=== PATIENT | female | born 1945 | race Caucasian/White ===

== ENCOUNTER 2018-09-30 12:26 | Emergency (ER) | payer MEDICARE, OTHER ==
[~2018-09-30] VITALS: Ht 152.4 cm; Wt 62.1 kg
--- OUTSIDE RECORDS SUMMARY | 2018-09-30 12:28 | XMS REPORT ---
Author Author [facility] Address Unknown Phone Unavailable Care Team Providers Care Building Surveyor Name Role Phone Unavailable Unavailable Payers Payer Name Policy Type Policy Number Effective Date Expiration Date Problems This patient has no known problems. Allergies, Adverse Reactions, Alerts Allergy Name Allergy Type Status Severity Reaction(s) Onset Date Inactive Date Treating Clinician Comments Iodinated Contrast Media - IV Dye DA Active SV 2017-11-04 00:00:00 Sulfa (Sulfonamide Antibiotics) DA Active SV 2017-11-04 00:00:00 codeine DA Active SV 2017-11-04 00:00:00 erythromycin base DA Active SV 2017-11-04 00:00:00 azithromycin DA Active U 2017-11-04 00:00:00 Medications This patient has no known medications.
[2018-09-30 14:19] LABS: BASOPHILS % 0.2 % (0.0-1.0); EOSINOPHILS % 0.1 % (0.0-6.0); HEMATOCRIT 38.9 % (34.2-44.1); HEMOGLOBIN 12.5 g/dL (12.0-16.0); LYMPHOCYTES # (AUTO) 1.7 (1.0-3.2); LYMPHOCYTES % 20.1 % (18.0-39.1); MEAN CORPUSCULAR HEMOGLOBIN 30.4 pg (28-32); MEAN CORPUSCULAR HGB CONC 32.1 g/dL (31-35); MEAN CORPUSCULAR VOLUME 94.6 fL (81-99); MONOCYTES # (AUTO) 0.8 (0.2-0.8); MONOCYTES % 9.9 % (4.4-11.3); NEUTROPHILS # (AUTO) 5.8 (2.1-6.9); NEUTROPHILS % 69.3 % (38.7-80.0); PLATELET COUNT 150 x10e3/uL (140-360); RED BLOOD COUNT 4.11 x10e6/uL (3.6-5.1); RED CELL DISTRIBUTION WIDTH 14.2 % (11.7-14.4)
[2018-09-30 14:28] LABS: INR 0.85; PARTIAL THROMBOPLASTIN TIME 25.8 seconds (23.8-35.5); PROTHROMBIN TIME 12.4 seconds (11.9-14.5)
[2018-09-30] MEDS ORDERED: CARVEDILOL25 MG PO (15:44)
[2018-09-30] MEDS ORDERED: ULTRAM 50MG50 MG PO (15:44)
[2018-09-30] MEDS ORDERED: PHENTERMINE H37.5 M1 PO (15:44)
[2018-09-30] MEDS ORDERED: ALPRAZOLAM2 MG PO (15:44)
[2018-09-30] MEDS ORDERED: TRAZODONE HCL100 MG PO (15:44)
[2018-09-30] MEDS ORDERED: DOXEPIN HCL10 MG PO (15:44)
[2018-09-30] MEDS ORDERED: CYMBALTA60 MG PO (15:44)
[2018-09-30] MEDS ORDERED: CLONAZEPAM2 MG PO (15:44)
[2018-09-30] MEDS ORDERED: ZOLPIDEM TART12.5 MG PO (15:44)
[2018-09-30 16:03] LABS: ALBUMIN 3.8 g/dL (3.5-5.0); ALBUMIN/GLOBULIN RATIO 1.4 (0.8-2.0); ANION GAP 15.2 mmol/L (8-16); CALCIUM 9.3 mg/dL (8.4-10.2); CREATININE, SERUM 0.92 mg/dL (0.57-1.11); POTASSIUM 4.2 mmol/L (3.5-5.1)
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
== END 2018-09-30 20:11 | disposition home or self-care (01) ==
LOC: ER 12:26
DX: Z04.1 Encounter for examination and observation following transport accident (principal); V44.5XXA Car driver injured in collision with heavy transport vehicle or bus in traffic accident, initial encounter; Y92.488 Other paved roadways as the place of occurrence of the external cause; I10 Essential (primary) hypertension; Z87.19 Personal history of other diseases of the digestive system
CPT/HCPCS: 36415; 70450; 80053; 85025; 85610; 85730; 99284

== ENCOUNTER 2020-02-26 16:52 | Emergency (ER) | payer MEDICARE, OTHER ==
[~2020-02-26] VITALS: Ht 152.4 cm; Wt 62.1 kg
[~2020-02-26 16:52] MED LIST: ALPRAZOLAM2 MG PO; CARVEDILOL25 MG PO; CLONAZEPAM2 MG PO; CYMBALTA60 MG PO; DOXEPIN HCL10 MG PO; PHENTERMINE H37.5 M1 PO; TRAZODONE HCL100 MG PO; ULTRAM 50MG50 MG PO; ZOLPIDEM TART12.5 MG PO
[2020-02-26] MEDS ORDERED: IBUPROFEN 600 MG TAB PO STA (17:49)
[2020-02-26] MEDS ORDERED: CYCLOBENZAPRINE HCL 10 MG TAB PO ONE (18:00)
[2020-02-26] MEDS ORDERED: IBUPROFEN 600 MG TAB ONE (18:57)
[2020-02-26] MEDS ORDERED: CYCLOBENZAPRINE HCL 10 MG TAB ONE (18:57)
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
[2020-02-26] MEDS ORDERED: PREDNISONE20 MG PO (19:53)
[2020-02-26] MEDS ORDERED: CYCLOBENZAPRINE10 MG PO (19:53)
== END 2020-02-26 20:10 | disposition home or self-care (01) ==
LOC: FSED 16:52
DX: S20.211A Contusion of right front wall of thorax, initial encounter (principal); S80.01XA Contusion of right knee, initial encounter; S83.91XA Sprain of unspecified site of right knee, initial encounter; S63.642A Sprain of metacarpophalangeal joint of left thumb, initial encounter; S63.651A Sprain of metacarpophalangeal joint of left index finger, initial encounter; S63.653A Sprain of metacarpophalangeal joint of left middle finger, initial encounter; S63.655A Sprain of metacarpophalangeal joint of left ring finger, initial encounter; S63.657A Sprain of metacarpophalangeal joint of left little finger, initial encounter; W08.XXXA Fall from other furniture, initial encounter; Y92.008 Other place in unspecified non-institutional (private) residence as the place of occurrence of the external cause
CPT/HCPCS: 99283